=== PATIENT | female | born 1975 | race Caucasian/White ===

== ENCOUNTER 2017-03-30 03:02 | Inpatient (IN) | payer MEDICAID ==
[~2017-03-30] VITALS: Ht 167.6 cm; Wt 76.0 kg
[2017-03-30 03:05] VITALS: Ht 167.6 cm; Wt 76.0 kg
--- NOTE | 2017-03-30 03:36 | RADRPT ---
PROCEDURE: XR Chest. CLINICAL INDICATION: Seizure TECHNIQUE: Portable single view of the chest COMPARISON: None. FINDINGS: The cardiomediastinal silhouette appears within normal limits. The lungs are clear and no pleural e ffusion or significant edema is seen. No bony abnormality is seen. IMPRESSION: No definite acute pulmonary disease. RPTAT: HLBE Cammy Moran Physician Date Time Electronically viewed and signed by Cammy Moran Physician on 03/30/2017 03:36 LE/
--- NOTE | 2017-03-30 04:02 | RADRPT ---
PROCEDURE: CT brain without contrast. CLINICAL INDICATION: Seizure. TECHNIQUE: CT scan of the brain was performed on a multi-detector high-resolution CT scanner. Co ntiguous axial images were obtained from the skull base to the vertex without intravenous contrast. Coronal and sagittal reformatted images were also obtained. Images were reviewed on the PACS works tation. One or more of the following dose reduction techniques were used: - Automated exposure control. - Adjustment of the mA and/or kV according to patient size. - Use of iterative reconstruction technique. Exam CTD/vol = 45.01 mGy. Total exam DLP = 720.23 mGy-cm. COMPARISON: None. FINDINGS: The ventricles and cortical sulci are within normal limits for patient's age. There are no areas of abnormal attenuation within the brain parenchyma. There is no mass effect or midline shift. There is no intracranial hemorrhage or abnormal extra-axial collection. The calvarium is intact. There is no evidence of fracture. There is moderate opacification of the ri ght sphenoid sinus with mucoperiosteal disease. Bilateral mastoid air cells are clear. IMPRESSION: No acute intracranial abnormality identified. Right sphenoid sinus inflammatory disease. .Clarke Welsh MD, Date Time Electronically viewed and signed by .Clarke Welsh MD, on 03/30/2017 04:01 .T/
[2017-03-30 04:08] LABS: BASOPHIL # 0.1 10^3/ul (0.0-0.1); BASOPHILS % 0.5 % (0.0-2.0); EOSINOPHILS # 0.1 10^3/ul (0.0-0.5); EOSINOPHILS % 0.8 % (0.0-7.0); HEMATOCRIT 42.9 % (37.0-47.0); HEMOGLOBIN 14.9 g/dl (12.0-16.0); LYMPHOCYTES # 4.5 10^3/ul (0.8-2.9); LYMPHOCYTES % 37.2 % (15.0-51.0); MEAN CORPUSCULAR HEMOGLOBIN 33.6 pg (29.0-33.0); MEAN CORPUSCULAR HGB CONC 34.7 g/dl (32.0-37.0); MEAN CORPUSCULAR VOLUME 96.6 fl (82.0-101.0); MEAN PLATELET VOLUME 11.5 fl (7.4-10.4); MONOCYTE # 0.8 10^3/ul (0.3-0.9); MONOCYTES % 6.5 % (0.0-11.0); NEUTROPHILS % 54.4 % (39.0-77.0); PLATELET COUNT 329 10^3/UL (140-415); RED BLOOD COUNT 4.44 10^6/ul (4.20-5.40); RED CELL DISTRIBUTION WIDTH 13.3 % (11.5-14.5); WHITE BLOOD COUNT 12.1 10^3/ul (4.8-10.8)
[2017-03-30 04:28] LABS: CALCIUM 8.8 mg/dl (8.4-10.2); CREATININE 0.85 mg/dl (0.44-1.00)
[2017-03-30 04:50] LABS: ADD UMIC YES; UR ASCORBIC ACID 40 mg/dL (NEGATIVE); UR BILIRUBIN (Dip) NEGATIVE (NEGATIVE); UR BLOOD (Dip) NEGATIVE (NEGATIVE); UR CLARITY SLIGHTLY CLOUDY (CLEAR); UR COLOR YELLOW (YELLOW); UR GLUCOSE (Dip) 1+ mg/dL (NEGATIVE); UR KETONES (Dip) TRACE mg/dL (NEGATIVE); UR LEUKOCYTE ESTERASE (Dip) NEGATIVE Leu/ul (NEGATIVE); UR NITRITE (Dip) NEGATIVE (NEGATIVE); UR RBC 1 /HPF (0-5); UR SPECIFIC GRAVITY (Dip) 1.015 (1.003-1.030); UR SQUAMOUS EPITHELIAL CELL FEW /HPF (FEW); UR TOTAL PROTEIN (Dip) 2+ mg/dl (NEGATIVE); UR UROBILINOGEN (Dip) NEGATIVE (NEGATIVE)
[2017-03-30 05:02] LABS: BARBITURATES NEGATIVE (NEGATIVE); BENZODIAZEPINES NEGATIVE (NEGATIVE); CANNABINOIDS POSITIVE (NEGATIVE); COCAINE NEGATIVE (NEGATIVE); OPIATES NEGATIVE (NEGATIVE)
--- NOTE | 2017-03-30 05:58 | ERA ---
ER Documentation Chief Complaint Date/Time DATE: 03/30/17 TIME: 05:57 Chief Complaint bib ra from home for possible witnessed shakey / seizure witnessed HPI 41-year-old female brought in by rescue for possible witnessed shaky seizure episode. According to tonic-clonic activity for 30-45 seconds and was unresponsive and had a postictal phase. Upon arrival patient is alert and oriented 4 patient does drink and smoke marijuana and his last drink was 2 days ago. No other current complaints. No tongue biting. No incontinence. ROS All systems reviewed and are negative except as per history of present illness. Allergies Allergies: Coded Allergies: No Known Allergy (Unverified , 03/30/17) PMhx/Soc Medical and Surgical Hx: pt denies Medical Hx, pt denies Surgical Hx Hx Alcohol Use: No Hx Substance Use: No Hx Tobacco Use: No Smoking Status: Never smoker Physical Exam Vitals Vital Signs Date Time Temp Pulse Resp B/P Pulse Ox O2 Delivery O2 Flow Rate FiO2 03/30/17 03:05 98.5 59 19 131/86 97 Physical Exam Const: [] Head: Atraumatic Eyes: Normal Conjunctiva ENT: Normal External Ears, Nose and Mouth. Neck: Full range of motion..~ No meningismus. Resp: Clear to auscultation bilaterally Cardio: Regular rate and rhythm, no murmurs Abd: Soft, non tender, non distended. Normal bowel sounds Skin: No petechiae or rashes Back: No midline or flank tenderness Ext: No cyanosis, or edema Neur: Awake and alert Psych: Normal Mood and Affect Result Diagram: 03/30/17 0321 03/30/17 0321 Results 24 hrs Laboratory Tests Test 03/30/17 03:21 03/30/17 04:20 White Blood Count 12.110^3/ul Red Blood Count 4.4410^6/ul Hemoglobin 14.9g/dl Hematocrit 42.9% Mean Corpuscular Volume 96.6fl Mean Corpuscular Hemoglobin 33.6pg Mean Corpuscular Hemoglobin Concent 34.7g/dl Red Cell Distribution Width 13.3% Platelet Count 76071^3/UL Mean Platelet Volume 11.5fl Neutrophils % 54.4% Lymphocytes % 37.2% Monocytes % 6.5% Eosinophils % 0.8% Basophils % 0.5% Nucleated Red Blood Cells % 0.0/100WBC Neutrophils # (Manual) 6.610^3/ul Lymphocytes # 4.510^3/ul Monocytes # 0.810^3/ul Eosinophils # 0.110^3/ul Basophils # 0.110^3/ul Nucleated Red Blood Cells # 0.010^3/ul Sodium Level 138mmol/L Potassium Level 3.0mmol/L Chloride Level 102mmol/L Carbon Dioxide Level 20mmol/L Anion Gap 19 Blood Urea Nitrogen 7mg/dl Creatinine 0.85mg/dl Glucose Level 219mg/dl Lactic Acid Level 8.8mmol/L Calcium Level 8.8mg/dl Serum HCG, Qualitative NEGATIVE Urine Color YELLOW Urine Clarity SLIGHTLY CLOUDY Urine pH 6.0 Urine Specific [place] 1.015 Urine Ketones TRACEmg/dL Urine Nitrite NEGATIVEmg/dL Urine Bilirubin NEGATIVEmg/dL Urine Urobilinogen NEGATIVEmg/dL Urine Leukocyte Esterase NEGATIVELeu/ul Urine Microscopic RBC 1/HPF Urine Microscopic WBC 0/HPF Urine Squamous Epithelial Cells FEW/HPF Urine Hemoglobin NEGATIVEmg/dL Urine Glucose 1+mg/dL Urine Total Protein 2+mg/dl Urine Opiates Screen NEGATIVE Urine Barbiturates NEGATIVE Urine Amphetamines Screen NEGATIVE Urine Benzodiazepines Screen NEGATIVE Urine Cocaine Screen NEGATIVE Urine Cannabinoids POSITIVE Procedures/MDM EKG: Rate/Rhythm: [Normal Sinus Rhythm] QRS, ST, T-waves: [No changes consistent w/ acute ischemia] Impression: [No evidence of ischemia or arrhythmia] Chest X-ray 1V Interpreted by me: Soft Tissue: No acute abnormalities Bones: No acute abnormalities Mediastinum/Cardiac Silhouette/Lungs: [No acute abnormalities] Medical decision-makin-year-old female comes in with new onset seizure disorder. At this point patient is clinically stable however I feel the patient needs inpatient neurological workup for further evaluation and management of new onset seizures. Patient will be admitted to hospitalist. Departure Diagnosis: Primary Impression: Seizure disorder Condition: Serious SABINARENEAMANDABritney Mar 30, 2017 05:58
[2017-03-30 06:21] VITALS: TEMP 98.4
[2017-03-30] MEDS ORDERED: POTASSIUM CHLORIDE (SR) 20 MEQ TAB PO STA (09:35)
[2017-03-30] MEDS ORDERED: LORAZEPAM 2 MG INJ IV PRN (10:00)
[2017-03-30] MEDS ORDERED: NACL 0.9% 3 ML SYG IV SCH (10:00)
[2017-03-30] MEDS ORDERED: ONDANSETRON 4 MG INJ IV PRN (10:00)
[2017-03-30] MEDS ORDERED: ACETAMINOPHEN 325 MG TAB PO PRN (10:00)
[2017-03-30] MEDS ORDERED: morphine 2 MG INJ IV PRN (10:00)
[2017-03-30] MEDS ORDERED: LEVOFLOXACIN 500MG/D5W (PMX) 100 ML IVPB SCH (10:00)
--- NOTE | 2017-03-30 12:19 | QN ---
Documentation Comment Observation Note: Time: 4 hours Family Hx: Negative for diabetes Evaluation: Multiple exams showed improving symptoms and no evidence of clinical decompensation. VANE HAWLEY MD Mar 30, 2017 12:19
[2017-03-30 14:30] VITALS: BP 163/78; PULSE 71; RESP 14
[2017-03-30 16:00] VITALS: PULSE 92
--- NOTE | 2017-03-30 18:30 | PDOCDIS ---
Discharge Instructions CONDITION Patient Condition: Good HOME CARE INSTRUCTIONS: Diet Instructions: Regular ACTIVITY: Activity Restrictions: No Restrictions FOLLOW UP/APPOINTMENTS Follow-up Plan F/U WITH YOUR PCP IN 1-2 WEEKS SANDRA SCHERER Mar 30, 2017 18:30
[2017-03-30 20:00] VITALS: PULSE 57
[2017-03-30 20:49] VITALS: BP 167/94; PULSE 20; PULSE 72; RESP 20
[2017-03-30 22:06] VITALS: BP 145/78; PULSE 75; RESP 18
--- NOTE | 2017-03-30 22:27 | HP ---
Date/Time of Note Date/Time of Note DATE: 03/30/17 TIME: 22:27 Assessment/Plan VTE Prophylaxis VTE Prophylaxis Intervention: SCD's Lines/Catheters IV [facility] Saline Lock Urinary Cath still in place: No Assessment/Plan Assessment/Plan 1. ALOC: completely resolved - possibly, alcohol-induced seizure - CT head neg for acute findings - admit to tele for obs -Consider MRI of the Brain 2. Lactic Acidosis - IVF for now -Repeat in 4 hours 3. Hypokalemia - replete 4. Leukocytosis: likely reactive - UA and CXR neg - Monitor for now HPI/ROS Admit Date/Time Admit Date/Time Mar 30, 2017 at 05:56 Hx of Present Illness This is a 41 yo female with no significant medical hx who presented to ER for LOC. Pt was lying on the couch watching TV when she fell asleep. Her boyfriend found her still on the couch with her arm extended and whole body rigid. She was unaware of certain events, but remembers when EMS arrived. Her boyfriend told her that she was not shaking. When she regained full consciousness, did not notice any deficit. No slurred speech, headache, focal weakness, incontinence, blurry vision. denied hx of seizure. On further questioning, she said she has been drinking heavily 2 days ago on Wednesday. Currently, she is feeling well. No complains. CTH in ER without acute findings. vitals were stable. Lab showed K+ of 3, WBC 12,000, with severe lactic acidosis > 8. UA neg for UTI and CXR no active findings. . PMH/Family/Social Social History Smoking Status: Never smoker Exam/Review of Systems Vital Signs Vitals Vital Signs Date Time Temp Pulse Resp B/P Pulse Ox O2 Delivery O2 Flow Rate FiO2 03/30/17 22:06 98.1 75 18 145/78 100 Room Air Exam Constitutional: alert, oriented, well developed Head: atraumatic, normocephalic Eyes: EOMI, PERRL Respiratory: clear to auscultation, normal air movement Cardiovascular: nl pulses, regular rate and rhythm Gastrointestinal: non-tender, soft Extremities: normal pulses Labs Result Diagram: 03/30/17 0321 03/30/17 0321 Medications Medications Current Medications Lorazepam (Ativan) 2 mg Q1H PRN IV seizure; Start 03/30/17 at 10:00 Ondansetron HCl (Zofran Inj) 4 mg Q6H PRN IV NAUSEA AND/OR VOMITING; Start 07/04 at 10:00 Acetaminophen (Tylenol Tab) 650 mg Q6H PRN PO PAIN LEVEL 1-3 OR FEVER; Start at 10:00 Morphine Sulfate (morphine) 2 mg Q4H PRN IV PAIN LEVEL 7-10; Start 03/30/17 at 10:00 Enoxaparin Sodium (Lovenox) 40 mg DAILY SC ; Start 03/31/17 at 09:00 AMANDA WALSH MD Mar 30, 2017 22:27
--- NOTE | 2017-03-31 08:30 | RADRPT ---
PROCEDURE: MRI Brain without contrast. CLINICAL INDICATION: Seizure TECHNIQUE: Multiplanar MRI of the brain without contrast was performed on a 3.0 T scanner with the following sequences obtained: T1-weighted, T2-weighted/FLAIR, diffusion weighted (with ADC map), GR E. COMPARISON: CT brain 03/30/2017 FINDINGS: No acute/recent ischemic infarction or intracranial hemorrhage / blood degradation products are iden tified. No extra-axial fluid collection is seen. There is no mass effect. No midline shift is identified. The ventricles and sulci are within normal limits for size and configuration. The mesial temporal lobe structures are unremarkable bilaterally the few scattered minimal areas of increased T2-weighted FLAIR signal intensity are seen in the deep white matter which are nonspecific . Flow voids are identified in the proximal intracranial arteries and dural sinuses suggesting patency . Near complete opacification of the right sphenoid sinus with areas of severe mucosal thickening are noted. IMPRESSION: 1. No evidence of acute intracranial pathology. 2. Minimal nonspecific white matter changes, possibly reflecting chronic small vessel ischemic waters ges. RPTAT: VV .Jose Omer MD, Date Time Electronically viewed and signed by .Jose Omer MD, on 03/31/2017 08:30 .O/
[2017-03-31] MEDS ORDERED: ENOXAPARIN 40 MG/0.4 ML SYG SC SCH (09:00)
--- NOTE | 2017-04-01 17:38 | DS ---
Date/Time of Note Date/Time of Note DATE: 04/01/17 TIME: 17:29 Discharge Summary Admission/Discharge Info Admit Date/Time Mar 30, 2017 at 05:56 Discharge Date/Time Mar 30, 2017 at 22:03 Discharge Diagnosis 1. ALOC: completely resolved - possibly, alcohol-induced seizure - CT head neg for acute findings -Follow up with PCP 2. Lactic Acidosis-resolved 3. Hypokalemia- repleted 4. Leukocytosis: likely reactive - UA and CXR neg Patient Condition: Good Hx of Present Illness . Hospital Course Patient is a 41 yo female with no significant medical hx who presented to ER for LOC. Patient had drinking a significant amount of alcohol over lot the past several days prior to admission, and prior to arrival her body became rigid and she had a lapse in her memory. There is no reported history by her boyfriend of any shaking or seizure and patient did regain full consciousness. Of note lactic acid level was severely elevated and patient did have leukocytosis which was felt to be reactive. Patient's lactic acid did resolve and brain MRI and brain CT showed no significant findings, UA chest x-ray showed no evidence of infection. Patient has no history of seizures and she states that she was worked up by her primary care physician for epilepsy in the past as she does have a family history of epilepsy but had no evidence of seizures or epilepsy during her previous workup, patient was felt to be stable for discharge and she stated that she does follow-up with her primary care physician and will continue to do so. On day of discharge patient's vitals, labs and physical exam are stable she had no acute complaints and questions are answered. Home Meds No Active Prescriptions or Reported Meds Follow-up Plan F/U WITH YOUR PCP IN 1-2 WEEKS Primary Care Provider Not On Staff Doctor Time spent on discharge: > 30 minutes SANDRA SCHERER Apr 01, 2017 17:38
--- NOTE | 2017-04-05 15:23 | PRO ---
DATE OF PROCEDURE: 03/30/2017 INDICATION: This is a 41-year-old woman, who was admitted following binge alcohol drinking and had an episode of loss of consciousness. EEG is to rule out seizure activity. CURRENT MEDICATIONS: None. PROCEDURE: Utilizing a 16 channel EEG machine, scalp to scalp electrodes were applied in accordance with the International 10- 20 system. Scalp to scalp and scalp to ear montages were displayed. Electrical impedances were measured and reported. DESCRIPTION OF PROCEDURE: During a resting state, posterior dominant rhythm of about 9 to 10 Hertz were seen bihemispherically. Photic stimulation had a good response. Hyperventilation did not attenuate the rhythm. There was no focal lateralizing or epileptiform discharge identified. INTERPRETATION: This is a normal EEG. A normal EEG does not exclude seizure disorder. Please correlate clinically. Dictated By: Yamila Cody MD /marsha/yulissa /Document#: [id number]
== END 2017-03-30 22:03 | disposition home or self-care (01) | DRG 101 ==
LOC: E/R 03:02 → MS3 05:56
PROVIDERS: ADMIT Internal Medicine; ATTEND Internal Medicine
DX: G40.501 Epileptic seizures related to external causes, not intractable, with status epilepticus (principal); E87.2 Acidosis; E87.6 Hypokalemia; D72.829 Elevated white blood cell count, unspecified
CPT/HCPCS: 70450; 70551; 71010; 80048; 80307; 81001; 83605; 84703; 85025; 87040; 93005; 95819